=== PATIENT | male | born 1955 | race Caucasian/White ===

== ENCOUNTER 2022-11-12 08:00 | Outpatient (RCR) | payer OTHER, SELFPAY ==
--- NOTE | 2022-10-14 14:46 | PTOPEVAL1 ---
Assessment and note entered by Marium Castillo, PT Evaluation Information Assessment Status Evaluation Diagnosis L wrist pain Onset Jul 2022 Subjective Information slipped and fell backwards, hit head and landed on L wrist; had xray-no fractures, had cortisone shot, helped pain for a few days; had course of prednisone- did not do much; dr ordered MRI, but have to have PT first; pain is better than it initially was, but over the past 2 months has been the same; limits his activity--lifting, golfing, writing; Reported Pain Level Pain Score Self Report Additional Pain Score Comments pain range of 0-8/10; L medial aspect of wrist, ulnar styloid bone; shoots up from medial wrist to posterior- lateral forearm;sometimes 3& 4fingers hurt; increase with L wrist extension and ulnar deviation, writing; unable to golf, bowling; 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 He reports pain limits his activity --lifting, golfing, writing, use of L hand for opening jars, doorknobs. He is L hand dominant. He states his insurance requires PT treatment, before an MRI will be approved. With the evaluation, pain is increased with end range of wrist flexion and combination movement of wrist extension and ulnar deviation. There is tenderness with palpation over medial wrist joint and ulnar styloid. 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 Skilled PT services are indicated for modalities to decrease pain and education for pain management with progression of strengthening activities as tolerated. Plan of Care Interventions Hot Pack/Cold Pack,Manual Therapy,Patient/ Caregiver Education,Therapeutic Activities, Therapeutic Exercise,Ultrasound,Other Other Interventions taping PT
--- NOTE | 2022-11-12 08:30 | PTOPDC ---
Assessment and note entered by Marium Castillo, PT Evaluation Information Assessment Status Discharge Diagnosis L wrist pain Onset Jul 2022 Subjective Information Luis Enrique reports: wrist continues to hurt, more since moving and doing the exercises; have not tried golfing; does not have any problems with sleeping; tape did not really help--just irritated his skin; is frustrated that wrist still hurting, since July has caused him pain; Reported Pain Level Pain Score Self Report L wrist Additional Pain Score Comments pain range 2-8/10; very sharp pain when moving wrist up and to ulnar side; dull at rest; decrease pain with resting wrist; use ice PRN; not taking any pain meds; does not write very often--just sign his name; is able to type on keyboard without any limitations with his work; discussed use of wrist immobilizer--has not been using; reinforced use of ice; Assessment PT Clinical Summary Luis Enrique has received 5 PT treatments. 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 The goals were partially met. Discharge PT services. He is to follow up with the Plan of Care PT Services Indicated No
== END 2022-12-30 09:06 | disposition home or self-care (01) ==
LOC: ANHPT 08:00
PROVIDERS: PCP Family Medicine Adolescent Medicine; Visit Provider Orthopaedic Surgery
DX: M25.532 Pain in left wrist (principal)
CPT/HCPCS: 97110; 97140; 97161; 97530

== ENCOUNTER 2022-11-28 06:52 | Outpatient (CLI) | payer OTHER, SELFPAY ==
--- NOTE | ~2022-11-28 | MR_ITS ---
EXAMINATION: MR wrist LT wo con DATE: 11/28/2022 07:41 INDICATION: Left wrist pain post fall 4 months prior with tear of the triangular fibrocartilage compl ex. TECHNIQUE: Magnetic resonance imaging (MRI) of the left wrist was performed without intravenous contr ast. Sequences performed include axial PD-weighted FSE and PD-weighted FS FSE, coronal PD-weighted FS FSE and T1-weighted SE, and sagittal PD-weighted FS FSE and PD-weighted FSE. COMPARISON: None FINDINGS: Intrinsic ligaments: Thickening and amorphous increased signal at the dorsal component of the scapholunate ligament with m ild erosive/productive change at the lunate footplate consistent with partial tear. The volar compone nt of the ligament remains intact. The lunotriquetral ligaments are normal. Triangular fibrocartilage complex (TFCC): There is a partial tear at the triangular fibrocartilage complex both at the radial side of the centr al fibrocartilaginous disc as well as at the ulnar side at the confluence of the central fibrocartila ginous disc, the ulnar styloid attachment and the meniscal homologue. The foveal and styloid attachme nts as well as the dorsal and volar radioulnar ligaments remain intact. The ulnar collateral ligament and ulnotriquetral ligament are normal. The extensor carpi ulnaris tendon sheath is normal. Extensor wrist: Mild fusiform thickening of the extensor carpi ulnaris tendon at the level of the tip of the ulnar st yloid process consistent with mild tendinopathy without tear. Extensor tendons of the wrist are other hayden normal. No tenosynovitis. Flexor wrist: The flexor tendons of the wrist are normal. No abnormality in the carpal tunnel with normal median n erve. Guyon's canal: Guyon's canal including the ulnar nerve and artery are normal. Bones/other: Mild polyarticular osteoarthritis at the distal radioulnar, wrist, midcarpal, triscaphe and first car pal metacarpal joints. There is scattered mild subarticular edema-like signal change along the proxim al carpal row including at the scaphoid, lunate and triquetrum. And minimally at the distal pole of t he scaphoid. Marrow signal is otherwise normal. No fracture, avascular necrosis or pathologic marrow replacing process. IMPRESSION: 1. Partial tear of the triangular fibrocartilage complex. 2. Partial tear of the dorsal component of the scapholunate ligament. 3. 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 4. Mild focal extensor carpi ulnaris tendinopathy without tear at the level of the tip of the ulnar s tyloid process. Reviewed, dictated and finalized at location L. IMPRESSION: 1. Partial tear of the triangular fibrocartilage complex. 2. Partial tear of the dorsal component of the scapholunate ligament. 3. 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 4. Mild focal extensor carpi ulnaris tendinopathy without tear at the level of the tip of the ulnar styloid process.
== END 2022-11-28 06:53 | disposition home or self-care (01) ==
PROVIDERS: PCP Family Medicine Adolescent Medicine; Visit Provider Orthopaedic Surgery
DX: S63.592A Other specified sprain of left wrist, initial encounter (principal); X58.XXXA Exposure to other specified factors, initial encounter; M19.032 Primary osteoarthritis, left wrist
CPT/HCPCS: 73221

== ENCOUNTER 2023-07-15 08:31 | Outpatient (CLI) | payer OTHER, SELFPAY ==
--- NOTE | 2023-07-15 09:30 | NEURO_ITS ---
Impression: # Complains of left upper extremity paresthesia. History of shoulder surgery several years ago. # No Carpal Tunnel Syndrome or ulnar neuropathy. # Needle/EMG exam abnormal in proximal muscles. # Clinical correlation recommended; Higher involvement needs to be ruled out. Nerve Conduction Studies Anti Sensory Summary Table Stim Site NR Peak (ms) P-T Amp (?V) Site1 Site2 Delta-P (ms) Dist (cm) Ishmael (m/s) Left Median Anti Sensory (2-3nd Digit) Wrist 2.6 31.1 Wrist 2-3nd Digit 2.6 14.0 54 Wrist 2.7 20.1 Wrist 2-3nd Digit 2.6 14.0 54 Left Radial Anti Sensory (Base 1st Digit) Wrist 2.1 16.5 Wrist Base 1st Digit 2.1 0.0 Left Ulnar Anti Sensory (5th Digit) Wrist 2.5 30.6 Wrist 5th Digit 2.5 14.0 56 Motor Summary Table Stim Site NR Onset (ms) O-P Amp (mV) Site1 Site2 Delta-0 (ms) Dist (cm) Ishmael (m/s) Left Median Motor (Abd Poll Brev) Wrist 3.1 5.4 Elbow Wrist 4.9 31.0 63 Elbow 8.0 4.9 Left Ulnar Motor (Abd Dig Minimi) Wrist 2.3 8.3 A Elbow Wrist 5.5 33.0 60 A Elbow 7.8 7.1 F Wave Studies NR F-Lat (ms) L-R F-Lat (ms) Left Median (Mrkrs) (Abd Poll Brev) 29.26 Left Ulnar (Mrkrs) (Abd Dig Min) 29.74 EMG Side Muscle Nerve Root Ins Act Fibs Amp Dur Recrt Comment Left 1stDorInt Ulnar C8-T1 Nml Nml Nml Nml Nml Left Ext Indicis Radial (Post Int) C7-8 Nml Nml Nml Nml Nml Left Ext Digitorum Radial (Post Int) C7-8 Nml Nml Nml Nml Nml Left BrachioRad Radial C5-6 Nml Nml Nml Nml Nml Left PronatorTeres Median C6-7 Nml Nml Nml Nml Nml Left Abd Poll Brev Median C8-T1 Nml Nml Nml Nml Nml Left ABD Dig Min Ulnar C8-T1 Nml Nml Nml Nml Nml Left Biceps Musculocut C5-6 Nml Nml Nml Nml Reduced Left Triceps Radial C6-7-8 Incr Nml Nml Nml Reduced Left Deltoid Axillary C5-6 Nml Nml Nml Nml Reduced MTDD
== END 2023-07-15 08:32 | disposition home or self-care (01) ==
LOC: ANHNEURO 08:32
PROVIDERS: PCP Family Medicine Adolescent Medicine; Visit Provider Plastic Surgery
DX: R20.2 Paresthesia of skin (principal)
CPT/HCPCS: 95886; 95909

== ENCOUNTER 2023-09-16 09:30 | Outpatient (CLI) | payer OTHER, SELFPAY ==
--- NOTE | 2023-09-16 09:30 | ECG_ITS ---
Measurements Intervals Wittman Rate: 58 P: 21 DC: 212 QRS: -15 QRSD: 100 T: 0 QT: 406 QTc: 399 Interpretive Statements SINUS BRADYCARDIA WITH FIRST DEGREE AV BLOCK INCOMPLETE RIGHT BUNDLE BRANCH BLOCK BASELINE ARTIFACT- I, III, AVR, AVL BORDERLINE ECG NO PREVIOUS ECG AVAILABLE FOR COMPARISON Electronically Signed On 09-16-2023 10:29:48 FIELD ASSEMBLY SUPERVISOR by Mikey Amos D.O.
== END 2023-09-16 09:31 | disposition home or self-care (01) ==
LOC: ANHSURGERY 09:34
PROVIDERS: PCP Family Medicine Adolescent Medicine; Visit Provider Plastic Surgery
DX: I10 Essential (primary) hypertension (principal); Z01.818 Encounter for other preprocedural examination; I45.10 Unspecified right bundle-branch block
CPT/HCPCS: 93005

== ENCOUNTER 2023-09-19 01:12 | Day surgery (SDC) | payer OTHER, SELFPAY ==
[2023-09-10 13:31] VITALS: BMI 27.8
--- NOTE | 2023-09-10 13:33 | PC.NURSE ---
Report to the Outpatient Waiting Room, entrance under the green pavilion located off [facility], at time _0915_ on date _[id number]_. Planned Procedure Time: _1115_. Time changes happen often and if your time is changed the preop area will call you the afternoon before. - You and your visitor will be asked to self-screen and do not enter if you have any COVID symptoms. - A mask is optional within the hospital at this time. - No food or drink after 315am Take the following medications with a SIP of water the morning of surgery: ____None DO NOT STOP ANY OF YOUR OTHER PRESCRIPTION MEDICATIONS PRIOR TO SURGERY ?EXCEPT THE FOLLOWING Medications to discontinue per physician Magnesium Date to take last ptxj___[id number] Please no make-up, nail samoan, hairspray, perfume, deodorant, or body powder the day of surgery. No jewelry (including any body piercings) or valuables the day of surgery, leave them at home. Please take a shower or bath the night before, or the morning of, surgery with an antibacterial soap. Wear comfortable, loose fitting clothing. - Jewelry must be removed prior to entering the operating room. Rings and piercings that are not removed may be cut off. - The hospital will not accept responsibility for valuables. - Please leave all valuables, including medications, at home the day of surgery. If you are going home after surgery, a licensed experienced truck driver must drive you home. - NO public transportation without another adult if you receive anesthesia. - We recommend that an adult stay with you for 24 hours following discharge. - We also recommend that you do not drive, make important decision, drink alcoholic beverages, or take any drugs that were not prescribed by your health care provider for at least 24 hours after your discharge time. Follow any additional instructions given to you from your surgeon. If you or anyone in your household have experienced Covid symptoms in the past week, please notify your surgeon or the nurse liaison at the phone number below for possible testing. Telephone instructions given to __Dan_and asked if any additional questions and then verbalized understanding. Patient advised to call surgeon office or pre surgery nurse liaison [phone] if any additional questions.
[2023-09-19] VITALS (7 sets, daily range): BP systolic 115–157; BP diastolic 76–99; PULSE 71–87; RESP 12–18; TEMP 36.2–36.4; O2SAT 94–99
--- NOTE | 2023-09-19 07:05 | WPDHPUPDATE1 ---
History and Physical Update Update Date/Time: 09/19/23 07:05 Patient seen and examined in pre-operative holding area. No interval change in medical history or symptoms. Patient recalls previous discussion of benefits and alternatives to procedure. Continues to desire to proceed with left cubital tunnel release and left wrist arthroscopy with possible debridement and possible ecu sheath release/repair. Reviewed procedure, post-op expectations and risks including but not limited to bleeding, infection, injury to tendon/nerve/vessel, decreased hand function, stiffness, RSD, no change or worsening of symptoms. I discussed the possible use of assistants and their participation in the case. Patient stated understanding and signed the consent form wishing to proceed.
--- NOTE | 2023-09-19 07:06 | W.PM.PROC2 ---
Procedure Note - Detailed Date of Procedure 09/19/23 Pre-op Diagnosis left cubital tunnel syndrome and left wrist pain Post-op Diagnosis Same Procedure Performed left cubital tunnel release, left wrist arthroscopy and debridement Surgeon Mary Richards MD Restaurant District Manager Ian Meneses PA-C Anesthesia General Description of Procedure INFORMED CONSENT:The patient was seen and examined and marked in the pre-op area.? The patient signed the consent form. PROCEDURE IN DETAIL: The patient taken back to OR on the stretcher in supine position. Time out performed with anesthesia, surgeon and staff agreeing on patient's name site and surgery to be performed SCDs were placed on the lower extremities and inflated A tourniquet was placed on {left} upper extremity and antibiotics given IV After anesthesia administered sedation I injected {10}cc 1%lido with epi and 0.5% marcaine plain at the operative sites The?{left upper extremity}?was prepped and draped in sterile fashion the??{left upper extremity} was??exsanguinated with Esmarch bandage and tourniquet inflated to 250mmHg I next proceeded with making a longitudinal incision between two heads for flexor carpi ulnaris at end of {left} cubital tunnel with 15 blade scalpel.? Littler scissors were used to spread down to FCU fascia.? An incision was made in FCU fascia and ulnar nerve identified exiting cubital tunnel.? I proceeded with complete retrograde release of the cubital tunnel including 7cm proximal for the intermuscular septum.? The nerve appeared healthy with visible vaso nervorum.? There was no subluxation on full elbow range of motion. ? I irrigated with normal saline and closure with 4-0 monocryl for dermis and subcuticular. Next I proceeded with placing the left extremity in the acumed traction tower and distracting to 15mmHg. I proceeded with using a 15 blade scalpel to make my 3,4 portal through skin and dermis. A clamp was then used to spread down to joint capsule and enter the joint capsule. The arthrex nanoscope was then inserted for this portal. There was no visualized SL widening and radiocarpal ligaments appeared intact without significant synovitis. I moved camera toward ulnocarpal joint were the tfcc was identified. There was moderate hyperemic synovitis but the tfcc appeared intact with normal trampoline test despite a small frayed edge on the dorsal radial corner. I proceeded with making a 6U portal with 15 blade and blunt clamp dissection. I inserted both an artrhoscopic shaver to debride a significant amount of synovitis and dorsal radial edge of tfcc around the ulnocarpal joint and then used the arthroscopic cautery to cauterize the remaining surrounding hyperemic tissue. The joint was irrigated with normal saline. After debridement I also placed the camera in the 6U portal for inspection and no further areas of synovitis were appreciated. The instrumentation was removed and portal sites closed with 4-0 chromic. The elbow incision was covered with Dermabond then 4x4s, hazel, and a posterior elbow splint and volar wrist splint was applied for patient safety, security and comfort and secured with queenie bandages after the tourniquet was let down noting the hand was warm and well perfused.? Patient awaken from anesthesia and transferred to recovery in stable condition Complications - none EBL- 2cc Disposition - home in stable conditions Ian Meneses PA-C was essential for positioning, retraction, instrumentation, closure and dressing placement [facility] Billing Surgery - Charge Forward: Surgery Billing ([id number], [id number], same codes for ian with modifier )
--- NOTE | 2023-09-19 09:54 | WPDANESEPPF ---
Anes - Initial Pre Proc Eval Procedure: Operation Date: 09/19/23 11:15 Proposed Procedures p Left Wrist Arthroscopy, Possible Debridement, Extensor Carpi Ulnaris Tendon, Sheath Incision, Possible Reconstruction - Mary Richards MD s Left Cubital Tunnel Release - Mary Richards MD Date/Time: 09/19/23 09:54 Surgeon: Mary Richards MD Pre Op Diagnosis: sprain left wrist Patient Data Age: 67 Gender: M Height: 1.83 m Weight: 88.8 kg Last Vital Signs Temp 36.4 C 09/19/23 09:23 Pulse 87 09/19/23 09:23 Resp 16 09/19/23 09:23 BP 157/99 H 09/19/23 09:23 Pulse Ox 95 09/19/23 09:23 O2 Del Method Room Air 09/19/23 09:23 Allergies Allergy/AdvReac Type Severity Reaction Status Date / Time No Known Allergies Allergy Mild Verified 09/19/23 09:39 Home Medications Medication Instructions Recorded Confirmed Type tamsulosin 0.4 mg capsule 0.4 mg PO QHS #90 caps 11/20/22 09/19/23 Rx losartan 50 mg tablet 50 mg PO DAILY #90 tabs 08/13/23 09/19/23 Rx magnesium 250 mg tablet 500 mg PO DAILY 09/10/23 09/19/23 History tramadol 50 mg tablet 50 mg PO Q6H PRN pain #14 tabs 09/19/23 Rx Patient hx anesthesia problems: none Family hx anesthesia problems: none Results Review: All pre-operative results and documents have been reviewed as part of the pre-operative evaluation. [facility] Past Medical History Medical History (Updated 09/19/23 @ 09:54 by Wilfredo Jordan MD) Healthy adult HTN (hypertension) Normal colonoscopy 08/03 Repeat 08/08 Overweight Surgical History Surgical History (Updated 09/19/23 @ 09:55 by Wilfredo Jordan MD) History of shoulder surgery Family History Family History Father Malignant neoplasm of prostate Hypertension Mother Carcinoma of colon Sibling Carcinoma of colon Social History Social History Smoking status: Current some day smoker Tobacco type: cigars Second hand tobacco smoke exposure: No Alcohol intake: current Drinks per week: 3 Substance use: never Substance use type: does not use Lack of Transportation: No Lack of Food: Never True Current Housing: I Have Housing Concerned About Future Housing: No Difficulty Paying Gas/Electric Bills: No Difficulty Paying for Meds: No Currently Unemployed: No Education: Bachelor's Degree Difficulty w/ Childcare or Family Care: No Living arrangements: with family Occupation/Education: occupation Gender identity (if verbalized by the patient): Male Sexual Orientation (if Verbalized by the Patient): Straight or Heterosexual Spiritual care concerns: No Agree to blood products: Yes Anes - Eval Final PreProcedure Day of Procedure 09/19/23 09:54 Patient weight: overweight Heart: regular rate and rhythm Lungs: clear to auscultation Airway: Mallampati scale class II Neurological: alert and oriented Last oral intake: >/= 8 hours ASA classification: II Emergent: no Anesthetic plan: proceed Anesthesia type and monitoring: general LMA and standard monitoring Results Review: All pre-operative results and documents have been reviewed as part of the pre-operative evaluation. Informed Consent: The patient's anesthetic plan and its attendant risks and benefits were discussed with the patient/family/POA. Questions were solicited and answers provided to the satisfaction of the patient/family/POA.
[2023-09-19] MEDS: LACTATED RINGERS 1,000 ML 30 ML IV CONT (09:55)
[2023-09-19] MEDS: ceFAZolin 2 GM/D5W 50 ML 2 GM/50 ML BAG IVPB (10:36)
[2023-09-19] MEDS: LIDO 1%/EPINEPHRINE 1:100,000 50 ML VIAL 15 ML INFILTRATE (11:17)
== END 2023-09-19 13:32 | disposition home or self-care (01) ==
PROVIDERS: PCP Family Medicine Adolescent Medicine; Visit Provider Plastic Surgery
PROC: (CPT 64718; principal; 2023-09-19 11:15)
PROC: (CPT 64718; 2023-09-19 11:15)
DX: G56.22 Lesion of ulnar nerve, left upper limb (principal); M65.832 Other synovitis and tenosynovitis, left forearm; I10 Essential (primary) hypertension; F17.290 Nicotine dependence, other tobacco product, uncomplicated
CPT/HCPCS: 64718; 29846; 93005; J0690; J1100; J1596; J2371; J2405; J2704; J3010; J7120

== ENCOUNTER 2025-02-14 08:00 | Day surgery (SDC) | payer MEDICARE, SELFPAY ==
[2024-09-16 11:55] VITALS: BMI 29.0
--- NOTE | 2025-02-14 07:04 | P.PNAN_ITS ---
Anes - Initial Pre Proc Eval Procedure: Operation Date: 02/14/25 09:30 Proposed Procedures p Diagnostic Colonoscopy - Tray Trevino MD Date/Time: 02/14/25 07:04 Surgeon: Tray Trevino MD Pre Op Diagnosis: Family HX of Colon Cancer Patient Data Age: 69 Gender: M Height: 1.83 m Weight: 94 kg Allergies Allergy/AdvReac Type Severity Reaction Status Date / Time No Known Allergies Allergy Mild Verified 02/14/25 08:18 Home Medications ?Medication ?Instructions ?Recorded ?Confirmed ?Type magnesium 250 mg tablet 500 mg PO DAILY 09/10/23 02/14/25 History atorvastatin 10 mg tablet 10 mg PO DAILY #90 tabs 12/30/24 02/14/25 Rx losartan 100 mg tablet 100 mg PO DAILY #90 tabs 12/30/24 02/14/25 Rx metoprolol succinate 25 mg 12.5 mg (1/2 x 25 mg) PO DAILY #45 12/30/24 02/14/25 Rx tablet,extended release 24 hr tabs levocetirizine 5 mg tablet (24HR 5 mg PO DAILY 01/25/25 02/14/25 History Allergy Relief) tamsulosin 0.4 mg capsule 0.4 mg PO DAILY 01/25/25 02/14/25 History Patient hx anesthesia problems: none Family hx anesthesia problems: none Results Review: All pre-operative results and documents have been reviewed as part of the pre- operative evaluation. [facility] Past Medical History Medical History (Updated 02/14/25 @ 08:30 by Cristi Quezada, ) Tachycardia wore heart monitor for a month to evaluate syncopal episode. Per patient there were some episodes of asymptomatic tachycardia up to 180 bpm. On metoprolol now Aortic atherosclerosis CT 01/28 Mixed hyperlipidemia HTN (hypertension) Overweight Normal colonoscopy 08/03 Repeat 08/08 Healthy adult Surgical History Surgical History History of shoulder surgery Family History Family History Father Malignant neoplasm of prostate Hypertension Mother Carcinoma of colon Sibling Carcinoma of colon Social History Social History Smoking status: Never smoker Second hand tobacco smoke exposure: No Alcohol intake: current Drinks per week: 3 Substance use: never Substance use type: does not use Lack of Transportation: No Lack of Food: Never True Current Housing: I Have Housing Concerned About Future Housing: No Difficulty Paying Gas/Electric Bills: No Difficulty Paying for Meds: No Currently Unemployed: No Education: Bachelor's Degree Difficulty w/ Childcare or Family Care: No Living arrangements: with family Additional living arrangements comments: Occupation/Education: occupation Gender identity (if verbalized by the patient): Male Sexual Orientation (if Verbalized by the Patient): Straight or Heterosexual Spiritual care concerns: No Agree to blood products: Yes Anes - Eval Final PreProcedure Day of Procedure 02/14/25 07:04 Patient weight: overweight Heart: regular rate and rhythm Lungs: clear to auscultation Airway: Mallampati scale class II Neurological: alert and oriented Last oral intake: >/= 8 hours ASA classification: III Emergent: no Anesthetic plan: proceed Anesthesia type and monitoring: general GIVS and standard monitoring Results Review: All pre-operative results and documents have been reviewed as part of the pre- operative evaluation. Informed Consent: The patient's anesthetic plan and its attendant risks and benefits were discussed with the patient/family/POA. Questions were solicited and answers provided to the satisfaction of the patient/family/POA.
--- OUTSIDE RECORDS SUMMARY | 2025-02-14 08:10 | XMS_ITS | Data Portability ---
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 He has had some minor response to conservative treatment unfortunate the pain is back. I think it is time to get as he has failed conservative treatment today I think it is time to get an MRI scan to evaluate the triangle fibrocartilage and and see if it is torn. I discussed this with him I will see him back after the MRI is done discussed. [email or web address] Not available 11/14/2022 09:29:48 12/02/2022 12/02/2022 Patient returns wrist pain left. He is tender over the ulnar aspect he has abutment pain to palpation manipulation strength is good and pain is a bit better but not 100%. 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 I think the combination is both her bothering him. I reinjected him per his request with 10 mg Kenalog 2 cc 1% lidocaine. We will try some anti-inflammatory medication and a brace. I will see him back in a month. If this does not work I will have ask Dr. Loyd to see him to evaluate him for possible wrist arthroscopy and debridement. [email or web address] Not available 12/02/2022 09:53:31 12/31/2022 12/31/2022 Patient returns ulnar abutment left wrist. His MRI shows a TFCC tear. I told him if it bothers him enough we can consider surgery I have talked with Dr. Loyd about this. He will call me when he is ready to consider it in the meantime he wants to get through the summer I have told him if he is going to play golf and be active he can try a wrist widget and see if this helps him. I will see him back on an as-needed basis, discussed. We discussed surgical options and he has declined for now. [email or web address] Not available 12/31/2022 14:38:39 Plan of Treatment Reminders Order Date Submit Date Provider Last Modified By Organization Details Last Modified Time Details Appointments None recorded. Lab None recorded. Referral None recorded. Procedures injection/a spiration joint/bursa (PROC) - in office procedure, administere d by provider 2022 023 [email or web address] In-Office Order, Internal Use Only DO Not Attach Compendium DO Not Attach Compendium, Do Not Delete/merge, [address] 09:43:00 Surgeries None recorded. Imaging MRI, wrist, w/o contrast - schedule as soon as possible 2022 023 [facility], [address], [place], [address], 3 10:00:10 Medication Orders Kenalog 10 mg/mL suspension for injection 2022 023 [email or web address] 158 [facility][id number], [address] [place] [address], [id number], 3 09:54:48 ropivacaine (PF) 5 mg/mL (0.5 %) injection solution 2022 023 neisha 158 [facility] #[id number], [address], [place], [phone], 3 09:54:48 Patient TargetsNo targets recorded. Patient InstructionsNo instructions recorded. Reason for Referral None Reported. Results Created Date Observation Date Name Description Value Unit Range Abnormal Flag Note LastModifiedBy Organization Detail LastModifiedTime 08/19/20 22 XR, wrist No observ ation record ed. [id number] [facility] [place] [address], [place], [address], 11/13/2022 10:51:42 11/29/19 23 11/28/2022 MRI, wrist , w/o contr ast No observ ation record ed. [address], [place], [address], 11/28/2022 12:31:04 Result Notes None recorded. 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 Procedures Surgical History Date Name Laterality Status Provider Name and Address Organization Details Recorded Time Ortho - Cortisone Injection completed Tom Noland MD [address] [place] [address], [id number], [place] [facility] [employer] [employer] 12/02/2022 09:52:06 Shoulder completed Not Available [facility] 10:42:14 Imaging Results None recorded. Procedure Notes None recorded. Medical Equipment None Reported. Medications Name Sig Start Date Stop Date Status Note LastModified by Organization Details LastModified Time losartan 50 mg tablet TAKE 1 TABLET BY MOUTH DAILY active Not Available Not Available No t Available prednisone 10 mg tablet TAKE 1 TAB BY MOUTH 3 TIMES DAILY FOR 3 DAYS, THEN 1 TAB TWICE DAILY X2 DAYS, THEN 1 TAB FOR 1 DAY active Not Available Not Available No t Available benzonatate 200 mg capsule TAKE 1 CAPSULE BY MOUTH THREE TIMES DAILY NEEDED FOR COUGH active Not Available Not Available No t Available prednisone 10 mg tablets in a dose pack Take 1 tab by mouth, 3 times a day for 3 daysTake 1 tab by mouth 2 times a day for 2 daysTake 1 tab by mouth once a day for 1 day active Not Available Not Available No t Available tamsulosin 0.4 mg capsule TAKE 1 CAPSULE BY MOUTH EVERY DAY AT BEDTIME active Not Available Not Available No t Available Kenalog 10 mg/mL suspension for injection Take 10 mg by injection route. 2022 active [facility]: [phone] Not Available Not Available Not Available lisinopril 10 mg tablet TAKE 1 TABLET BY MOUTH DAILY active Not Available Not Available No t Available montelukast 10 mg tablet 08/19 completed Not Available Not Available Not Available ropivacaine (PF) 150 mg/30 mL (5 mg/mL) 0.5 % in 0.9 % NaCl syringe IN OFFICE active Not Available Not Available No t Available AndroGel 20.25 mg/1.25 gram per pump act. (1.62 %) transdermal gel 08/19 completed Not Available Not Available Not Available ropivacaine (PF) 5 mg/mL (0.5 %) injection solution Take 10 mg by injection route. 2022 active Not Available Not Available Not [facility] Vitals Date Recorded Body mass index (BMI) Body height Body weight Provider Name and Address Organization Details Last Updated DateTime 09/17/2022 27.7 kg/m2 185.42 cm 24983.4 g Not Available [facility] 11/13/2022 10:44:45 Date Recorded Body height Body mass index (BMI) Body weight Provider Name and Address Organization Details Last Updated DateTime 11/14/2022 185.42 cm 27.7 kg/m2 18874.4 g JASPER Addison [facility] 11/14/2022 09:02:13 Date Recorded Body height Body mass index (BMI) Body weight Provider Name and Address Organization Details Last Updated DateTime 12/02/2022 185.42 cm 27 kg/m2 43406.44 g LINDA Lewis [facility] 12/02/2022 09:25:59 Date Recorded Body height Body mass index (BMI) Body weight Provider Name and Address Organization Details Last Updated DateTime 12/31/2022 182.88 cm 28.5 kg/m2 79464.4 g Alpa Caballero CNA [facility] 12/31/2022 14:08:25 Date Recorded Body mass index (BMI) Body height Body weight Provider Name and Address Organization Details Last Updated DateTime 08/19/2022 28.5 kg/m2 182.88 cm 85102.4 g Not Available [facility] 11/13/2022 10:44:45 Social History None recorded. Functional Status Question Answer Note LastModified by Organizat ion Details LastModified Time What is your level of alcohol consumption? Occasional [id number] Information not available 11/13/2022 Mental Status None recorded. Family History Relationship Description Onset Age of this Age Resolved Age Notes LastModified by Organization Details LastModified Time Mother Family history of malignant neoplasm Not available 12/31 14:02:50 Father Hypertensive disorder [id number] Not available 11/13/2022 10:42:19 Medical History No medical history recorded. Past Encounters Encounter ID Performer Location Encounter Start Date Encounter Closed Date Diagnosis/Indication Diagnosis SNOMED-CT Code Diagnosis ICD10 Code Diagnosis Note [id number] Tom Noland MD [facility] [place] [address] [place] [address] 08/19/2022 00:00:00 08/19/2022 11:09:31 [id number] Tom Noland MD [facility] [place] [address] [place] [address] 09/17/2022 00:00:00 09/17/2022 14:55:59 [id number] Tom Noland MD [facility] [place] [address] [place] [address] 11/14/2022 08:57:43 11/14/2022 11:26:56 Pain of left wrist 3696361443 32617 M25.532 Ulnar impa ction syndrome of left wrist 8056170679 6935516 M25.832 Tear of tr iangular fibrocartilage complex of left wrist 7874030460 5842892 S63.592A [id number] Tom Noland MD [facility] [place] [address] [place] [address] 12/02/2022 09:22:10 12/02/2022 10:10:16 Pain of left wrist 1298390776 59260 M25.532 Ulnar impa ction syndrome of left wrist 4017495589 9688684 M25.832 Tear of tr iangular fibrocartilage complex of left wrist 2350928903 3967913 S63.592D [id number] Tom Noland MD [facility] [place] [address] [place] [address] 12/31/2022 14:00:26 12/31/2022 15:30:01 Pain of left wrist 0121670759 25286 M25.532 Ulnar impa ction syndrome of left wrist 8093098788 3041902 M25.832 Tear of tr iangular fibrocartilage complex of left wrist 1636655442 3330338 S63.592D Health Concerns Section Related Observation LastModified by Organization Detai ls LastModified Time None Recorded Concern Status LastModified by Organization Details LastModified Time None Recorded Advance Directives Directive None Recorded Payers Encounter Date Sequence Insurance Name Policy Number Policy Salas Covered Member ID Salas Member ID Guarantor Name 11/14/2022 1 [employer] [id number] Luis Enrique Mart Schimpf [id number] Luis Enrique Mart Schimpf 12/02/2022 1 [employer] [id number] Luis Enrique Mart Schimpf [id number] Luis Enrique Mrat Schimpf 12/31/2022 1 [employer] [id number] Luis Enrique Mart Schimpf [id number] Luis Enrique Mart Schimpf Notes Date Note Type Note Provider Name and Address Organization Details Recorded Time 11/14/2022 text/html Patient returns ulnar pain left. He has ulnar abutment he had a shot and brace and anti-inflammatory medication he got some relief but not complete the pain returns and he still has pain. Tom Noland MD [address] [place] [address], [place], [address], [facility] [employer] [employer] 11/14/2022 09:30:12 12/02/2022 text/html Patient returns wrist pain left. He brings an MRI scan that shows a TFCC tear as well as her arthritis in multiple joints. The pain persists although he does think it is a bit better at this point, with the previous injection. Tom Noland MD [address], [place], [address], [employer] [facility] 12/02/2022 09:54:44 12/31/2022 text/html Patient returns wrist pain. He is better but not nearly % he still got a fair bit of pain particularly. His MRI shows a tear of the TFCC we talked about surgical intervention. he has pain most activities particularly heavy gripping. Tom Noland MD [address], [place], [address], [facility] 12/31/2022 14:38:43
[2025-02-14 08:19] VITALS: BP 119/85; PULSE 63; RESP 16; TEMP 36.6; O2SAT 96
[2025-02-14] MEDS: LACTATED RINGERS 1,000 ML 150 ML IV CONT (08:22)
--- NOTE | 2025-02-14 09:41 | PM.IMHP ---
H&P: HPI History of Present Illness Date/Time: 02/14/25 09:41 Chief Complaint: Family history of colon cancer Narrative: This patient has family history of colorectal cancer. his mother had when she was 75 and her sister at 55. Review of Systems Review of Systems: All systems reviewed & are unremarkable except as noted in HPI and below PMFSH Past Medical History Medical History (Updated 02/14/25 @ 09:42 by Tray Trevino MD) Tachycardia wore heart monitor for a month to evaluate syncopal episode. Per patient there were some episodes of asymptomatic tachycardia up to 180 bpm. On metoprolol now Aortic atherosclerosis CT 01/28 Mixed hyperlipidemia HTN (hypertension) Overweight Normal colonoscopy 08/03 Repeat 08/08 Healthy adult Surgical History Surgical History History of shoulder surgery Family History Family History Father Malignant neoplasm of prostate Hypertension Mother Carcinoma of colon Sibling Carcinoma of colon Social History Social History Smoking status: Never smoker Second hand tobacco smoke exposure: No Alcohol intake: current Drinks per week: 3 Substance use: never Substance use type: does not use Lack of Transportation: No Lack of Food: Never True Current Housing: I Have Housing Concerned About Future Housing: No Difficulty Paying Gas/Electric Bills: No Difficulty Paying for Meds: No Currently Unemployed: No Education: Bachelor's Degree Difficulty w/ Childcare or Family Care: No Living arrangements: with family Additional living arrangements comments: Occupation/Education: occupation Gender identity (if verbalized by the patient): Male Sexual Orientation (if Verbalized by the Patient): Straight or Heterosexual Spiritual care concerns: No Agree to blood products: Yes Meds Home Medications and Allergies Home Medications ?Medication ?Instructions ?Recorded ?Confirmed ?Type magnesium 250 mg tablet 500 mg PO DAILY 09/10/23 02/14/25 History atorvastatin 10 mg tablet 10 mg PO DAILY #90 tabs 12/30/24 02/14/25 Rx losartan 100 mg tablet 100 mg PO DAILY #90 tabs 12/30/24 02/14/25 Rx metoprolol succinate 25 mg 12.5 mg (1/2 x 25 mg) PO DAILY #45 12/30/24 02/14/25 Rx tablet,extended release 24 hr tabs levocetirizine 5 mg tablet (24HR 5 mg PO DAILY 01/25/25 02/14/25 History Allergy Relief) tamsulosin 0.4 mg capsule 0.4 mg PO DAILY 01/25/25 02/14/25 History Allergies Allergy/AdvReac Type Severity Reaction Status Date / Time No Known Allergies Allergy Mild Verified 02/14/25 08:18 Vital Signs Vital Signs - 24 hr 02/14/25 08:19 Temperature 97.8 F Pulse Rate 63 Respiratory Rate 16 Blood Pressure 119/85 Pulse Oximetry 96 Oxygen Delivery Room Air Exam Const: General: cooperative and healthy appearing Resp: Effort & Inspection: normal respiratory effort and able to speak in complete sentences Auscultation: clear to auscultation bilaterally Cardio: Rate: regular rate Rhythm: regular rhythm GI: Inspection: normal to inspection GI Palp: No No hepatosplenomegaly present Auscultation: normal bowel sounds Rectal Exam: deferred Skin: General skin exam: normal color Psych: Appearance: grossly normal Mental Status: mental status grossly normal Assessment and Plan Assessment and plan (1) Family history of colon cancer: Code(s): Z80.0 - Family history of malignant neoplasm of digestive organs Status: Acute Assessment and Plan: The patient is deemed a good candidate for the procedure. Consent signed. Will proceed.
[2025-02-14 10:01] VITALS: BP 119/77; PULSE 67; RESP 14; O2SAT 97
[2025-02-14 10:11] VITALS: BP 110/78; PULSE 60; RESP 14; O2SAT 97
[2025-02-14 10:21] VITALS: BP 125/81; PULSE 57; RESP 16; O2SAT 98
--- NOTE | 2025-02-14 11:41 | WPDANESPN ---
Anes - Prog Note Post-Op Date/Time: 02/14/25 11:41 Cardiovascular status: normal Respiratory status: normal Airway patency: baseline Mental status: baseline Post-Op hydration status: normal Vital Signs: Last Vital Signs Temp 36.6 C 02/14/25 08:19 Pulse 57 L 02/14/25 10:21 Resp 16 02/14/25 10:21 BP 125/81 02/14/25 10:21 Pulse Ox 98 02/14/25 10:21 O2 Del Method Room Air 02/14/25 10:21 Pain Score (VAS): 0 I/O: Intake & Output 02/13/25 02/14/25 02/14/25 23:59 07:59 15:59 Intake Total 250 Balance 250 Post-procedural complaints: none Patient Feedback: Patient satisfied with anesthetic care. Other Findings: Patient vital signs back to baseline. Patient denies nausea and vomiting. Patient's pain under control. Patient OK for discharge.
== END 2025-02-14 10:30 | disposition home or self-care (01) ==
PROVIDERS: PCP Family Medicine Adolescent Medicine; Visit Provider Internal Medicine Gastroenterology
PROC: 0DJD8ZZ Inspection of Lower Intestinal Tract, Via Natural or Artificial Opening Endoscopic (ICD-10-PCS; CPT 45378; principal; 2025-02-14 09:30)
DX: Z12.11 Encounter for screening for malignant neoplasm of colon (principal); K57.30 Diverticulosis of large intestine without perforation or abscess without bleeding; K64.8 Other hemorrhoids; Z80.0 Family history of malignant neoplasm of digestive organs
CPT/HCPCS: G0105